=== PATIENT | female | born 1970 | race American Indian/Alaskan Native ===

== ENCOUNTER 2017-09-05 08:10 | Emergency (ER) | payer BC ==
[2017-09-05 08:27] VITALS: RESP 18
[2017-09-05] MEDS ORDERED: Oxycodone/Acetaminophen 5/325 mg Tab PO STA (08:43)
--- NOTE | 2017-09-05 09:08 | C.PDOC ---
History Of Present Illness PELVIC CRAMPING SINCE LAST NIGHT. PS ABN VAG BLEED YEST, LMP 2 WEEKS AGO. ALSO "MUCH HEAVIER" THAN USUAL. VB NOW STOPPED, CO PERSIST PELVIC PAIN. NO IMPROVE W TYLENOL AND NSAIDS. NO NV, FEVER. NO UTI SX EXAM MILD DIST NONTOXIC ABD +PELVIC TEND SOFT NO R/G REMAINDER NEG Time Seen by Provider: 09/05/17 08:17 Chief Complaint (Nursing): Abdominal Pain History Per: Patient History/Exam Limitations: no limitations Onset/Duration Of Symptoms: Sudden Onset (last night) Current Symptoms Are (Timing): Still Present Past Medical History Reviewed: Historical Data, Nursing Documentation, Vital Signs Vital Signs: Last Vital Signs Temp 98.0 F 09/05/17 08:10 Pulse 84 09/05/17 08:10 Resp 18 09/05/17 08:10 BP 210/108 H 09/05/17 08:10 Pulse Ox 99 09/05/17 10:08 - Medical History PMH: HTN Family History: States: No Known Family Hx - Social History Hx Alcohol Use: Yes Hx Substance Use: No - Immunization History Hx Tetanus Toxoid Vaccination: Yes Hx Influenza Vaccination: No Hx Pneumococcal Vaccination: No Review Of Systems Except As Marked, All Systems Reviewed And Found Negative. Constitutional: Negative for: Fever Gastrointestinal: Positive for: Abdominal Pain (pelvic cramping). Negative for : Nausea, Vomiting Genitourinary: Positive for: Vaginal Bleeding, Pelvic Pain. Negative for: Dysuria Neurological: Negative for: Weakness, Numbness Physical Exam - Physical Exam Appears: Non-toxic, In Acute Distress (mild) Skin: Warm, Dry, No Rash Oral Mucosa: Moist Respiratory: Normal Breath Sounds Gastrointestinal/Abdominal: Soft, Tenderness (pelvic tenderness), No Guarding, No Rebound Extremity: Normal ROM, No Swelling Neurological/Psych: Oriented x3, Normal Speech ED Course And Treatment O2 Sat by Pulse Oximetry: 99 (RA) Pulse Ox Interpretation: Normal Medical Decision Making Medical Decision Making: PLAN: * POC * Urinalysis * Percocet PO * Zofran PO NOTE: Disposition Counseled Patient/Family Regarding: Studies Performed, Diagnosis, Need For Followup, Rx Given - Disposition Referrals: YOUR,OBGYN [Other] Disposition: HOME/ ROUTINE Disposition Time: 10:15 Condition: IMPROVED Prescriptions: Tramadol HCl [Ultram] 50 mg PO QID #20 tab Instructions: Dysfunctional Uterine Bleeding (ED) Forms: [facility] (Estonian), Work Excuse - Clinical Impression Clinical Impression: Vaginal bleeding, abnormal - Scribe Statement The provider has reviewed the documentation as recorded by the Scribe Ilana Martinez Provider Attestation: All medical record entries made by the Vinceibe were at my direction and personally dictated by me. I have reviewed the chart and agree that the record accurately reflects my personal performance of the history, physical exam, medical decision making, and the department course for this patient. I have also personally directed, reviewed, and agree with the discharge instructions and disposition.
[2017-09-05] MEDS ORDERED: Oxycodone/Acetaminophen 5/325 mg Tab ONE (09:32)
[2017-09-05 09:49] LABS: SQUAMOUS EPITHIAL 1 /hpf (0-5); URINE BILIRUBIN NEGATIVE (NEGATIVE); URINE BLOOD 2+ (NEGATIVE); URINE CLARITY Clear (Clear); URINE COLOR Colorless (YELLOW); URINE GLUCOSE (UA) NORMAL (Normal); URINE LEUKOCYTE ESTERASE NEG Leu/uL (Negative); URINE NITRATE NEGATIVE (NEGATIVE); URINE PROTEIN NEGATIVE (NEGATIVE); URINE UROBILINOGEN NORMAL mg/dL (0.2-1.0)
[2017-09-05 10:48] VITALS: BP 163/85; PULSE 89; TEMP 98.8; O2SAT 100
== END 2017-09-05 10:57 | disposition home or self-care (01) ==
LOC: C.ER 08:10
DX: N93.9 Abnormal uterine and vaginal bleeding, unspecified (principal)